=== PATIENT | female | born 1935 | race Caucasian/White ===

== ENCOUNTER 2023-12-05 06:30 | Inpatient (IN) | payer MEDICARE ==
[~2023-12-05] VITALS: Ht 152.4 cm; Wt 61.1 kg
[2023-12-05 06:48] LABS: Basophils # (auto) 0.1 10 ^3/uL (0-0.2); Basophils % (auto) 1.1 % (0.0-2.0); Eosinophils # (auto) 0.2 10 ^3/uL (0-0.8); Eosinophils % (auto) 2.4 % (0.0-7.0); Hematocrit 43.8 % (36.0-46.0); Hemoglobin 14.6 g/dL (12.2-16.2); Lymphocytes % (auto) 13.4 % (10.0-50.0); Mean Corpuscular Hemoglobin 31.3 pg (28.0-32.0); Mean Corpuscular Hgb Conc. 33.3 g/dL (32.0-36.0); Monocytes # (auto) 0.7 10 ^3/uL (0-1.3); Monocytes % (auto) 9.8 % (0.0-12.0); Neutrophils # (auto) 5.5 10 ^3/uL (1.6-8.6); Neutrophils % (auto) 73.3 % (37.0-80.0); Red Blood Cells 4.66 10^6/uL (4.0-5.20); Red Cell Distribution Width 14.8 % (11.8-14.3); White Blood Cell 7.5 10^3/uL (4.4-10.8)
[2023-12-05 07:03] LABS: INR 1.02 (0.9-1.15); Partial Thromboplastin Time 28.5 SEC (24.5-34.5); Prothrombin Time 10.8 sec (9.3-11.8)
[2023-12-05 07:25] LABS: Albumin 3.9 g/dL (3.2-4.8); Alkaline Phosphatase 79 U/L (46-116); Anion Gap 6 (5-15); Aspartate Aminotransferase 20 U/L (13-40); BUN/Creatinine Ratio 11.2 (10.0-20.0); Bilirubin, Total 0.5 mg/dL (0.2-1.0); Blood Urea Nitrogen 13 mg/dL (9-23); Calcium 9.5 mg/dL (8.5-10.1); Carbon Dioxide 25 mmol/L (20-30); Chloride 110 mmol/L (98-107); Glucose 98 mg/dL (74-106); Potassium 3.9 mmol/L (3.5-5.1); Sodium 141 mmol/L (136-145); Total Protein 6.7 g/dL (5.7-8.2)
[2023-12-05 07:26] LABS: Alanine Aminotransferase 9 U/L (7-40)
[2023-12-05] MEDS ORDERED: NITROGLYCERIN 0.4 MG SL TAB SL PRN (11:15)
[2023-12-05 12:20] LABS: INR 0.98 (0.9-1.15); Prothrombin Time 10.4 sec (9.3-11.8)
[2023-12-05 13:00] VITALS: BP 111/67; PULSE 70; RESP 18; TEMP 98; O2SAT 94
[2023-12-05 13:05] VITALS: PULSE 62; RESP 18; O2SAT 98
[2023-12-05 15:14] VITALS: PULSE 75; RESP 18; O2SAT 96
[2023-12-05] MEDS ORDERED: hydrALAZINE HCL 20 MG/ML VL IV PRN (16:00)
[2023-12-05 16:27] LABS: Triglycerides 143 mg/dL (< 150)
[2023-12-05 16:28] LABS: LDL Cholesterol 69 mg/dL (< 100)
[2023-12-05 16:29] LABS: Cholesterol 131 mg/dL (< 200); HDL Cholesterol 36 mg/dL (40-59)
[2023-12-05] MEDS: ASPirin 325 MG TAB PO ONE (16:53)
[2023-12-05] MEDS: FUROSEMIDE 40 MG/4 ML VIAL IV ONE (16:53)
[2023-12-05 17:00] VITALS: BP 108/75; PULSE 74; RESP 14; TEMP 97.7; O2SAT 96
[2023-12-05 20:00] VITALS: PULSE 72
[2023-12-05] MEDS: ATORVASTATIN 20 MG TAB PO SCH (21:15)
[2023-12-05] MEDS: ENOXAPARIN SOD 60 MG/0.6 ML SYRINGE SC SCH (21:16)
[2023-12-05] MEDS: SACUBITRIL-VALSARTAN 24mg/26mg TAB PO SCH (21:17)
[2023-12-05] MEDS: ACETAMINOPHEN 325 MG TAB PO PRN (21:23)
[2023-12-06] MEDS: FUROSEMIDE 20 MG/2 ML VIAL IV SCH (06:36)
[2023-12-06 07:46] LABS: Basophils # (auto) 0 10 ^3/uL (0-0.2); Basophils % (auto) 0.4 % (0.0-2.0); Eosinophils # (auto) 0.1 10 ^3/uL (0-0.8); Eosinophils % (auto) 0.5 % (0.0-7.0); Hematocrit 48.5 % (36.0-46.0); Hemoglobin 16.3 g/dL (12.2-16.2); Lymphocytes # (auto) 0.6 10 ^3/uL (0.4-5.4); Lymphocytes % (auto) 5.1 % (10.0-50.0); Mean Corpuscular Hemoglobin 31.3 pg (28.0-32.0); Mean Corpuscular Hgb Conc. 33.6 g/dL (32.0-36.0); Mean Corpuscular Volume 92.9 fL (80.0-100.0); Monocytes # (auto) 0.9 10 ^3/uL (0-1.3); Monocytes % (auto) 7.1 % (0.0-12.0); Neutrophils # (auto) 10.4 10 ^3/uL (1.6-8.6); Neutrophils % (auto) 86.9 % (37.0-80.0); Red Blood Cells 5.22 10^6/uL (4.0-5.20); Red Cell Distribution Width 14.4 % (11.8-14.3)
[2023-12-06 08:00] VITALS: PULSE 78
[2023-12-06 08:05] LABS: Alanine Aminotransferase 12 U/L (7-40); Albumin 4.1 g/dL (3.2-4.8); Alkaline Phosphatase 75 U/L (46-116); Anion Gap 10 (5-15); Aspartate Aminotransferase 19 U/L (13-40); BUN/Creatinine Ratio 10.4 (10.0-20.0); Bilirubin, Total 0.8 mg/dL (0.2-1.0); Blood Urea Nitrogen 13 mg/dL (9-23); Calcium 9.4 mg/dL (8.5-10.1); Carbon Dioxide 24 mmol/L (20-30); Chloride 105 mmol/L (98-107); Cholesterol 136 mg/dL (< 200); Glucose 92 mg/dL (74-106); HDL Cholesterol 33 mg/dL (40-59); Potassium 3.8 mmol/L (3.5-5.1); Sodium 139 mmol/L (136-145); Total Protein 7.1 g/dL (5.7-8.2); Triglycerides 138 mg/dL (< 150)
[2023-12-06 08:09] LABS: LDL Cholesterol 75 mg/dL (< 100)
[2023-12-06 09:00] VITALS: BP 108/63; PULSE 76; RESP 16; TEMP 97.6; O2SAT 94
[2023-12-06] MEDS: DOCUSATE SOD 100 MG CAP PO SCH (10:00)
[2023-12-06] MEDS ORDERED: ASPirin 81 mg TAB PO SCH (10:00)
[2023-12-06] MEDS: ASPirin 81 mg TAB PO SCH (10:17)
[2023-12-06] MEDS: ONDANSETRON HCL 4 MG/2 ML VIAL IV PRN (15:37)
[2023-12-06 16:50] VITALS: BP 111/73; PULSE 91; RESP 16; TEMP 98.3; O2SAT 95
[2023-12-06 20:00] VITALS: PULSE 87; PULSE 96; RESP 16; O2SAT 93
[2023-12-06 21:25] VITALS: BP 126/72; PULSE 87; RESP 16; TEMP 97.8; O2SAT 93
[2023-12-07] VITALS (7 sets, daily range): BP systolic 90–106; BP diastolic 59–69; PULSE 76–113; RESP 15–18; TEMP 97.8–98.7; O2SAT 91–98
[2023-12-07 06:02] LABS: Chloride 105 mmol/L (98-107); Potassium 3.7 mmol/L (3.5-5.1); Sodium 137 mmol/L (136-145)
[2023-12-07 06:03] LABS: Anion Gap 10 (5-15); Calcium 9.3 mg/dL (8.7-10.4); Carbon Dioxide 22 mmol/L (20-30)
[2023-12-07 06:08] LABS: BUN/Creatinine Ratio 12.8 (10.0-20.0); Blood Urea Nitrogen 18 mg/dL (9-23); Glucose 102 mg/dL (74-106)
[2023-12-07 06:10] LABS: Basophils # (auto) 0.1 10 ^3/uL (0-0.2); Basophils % (auto) 0.9 % (0.0-2.0); Eosinophils # (auto) 0.1 10 ^3/uL (0-0.8); Eosinophils % (auto) 0.5 % (0.0-7.0); Hematocrit 48.4 % (36.0-46.0); Hemoglobin 16.3 g/dL (12.2-16.2); Lymphocytes % (auto) 9.9 % (10.0-50.0); Mean Corpuscular Hemoglobin 31.5 pg (28.0-32.0); Mean Corpuscular Hgb Conc. 33.6 g/dL (32.0-36.0); Mean Corpuscular Volume 93.7 fL (80.0-100.0); Monocytes # (auto) 1.2 10 ^3/uL (0-1.3); Monocytes % (auto) 11.2 % (0.0-12.0); Neutrophils % (auto) 77.5 % (37.0-80.0); Nucleated Red Blood Cells % 0.1 %; Red Blood Cells 5.17 10^6/uL (4.0-5.20); Red Cell Distribution Width 14.4 % (11.8-14.3); White Blood Cell 10.4 10^3/uL (4.4-10.8)
[2023-12-07 06:14] LABS: INR 1.07 (0.9-1.15); Partial Thromboplastin Time 31.9 SEC (24.5-34.5); Prothrombin Time 11.3 sec (9.3-11.8)
[2023-12-07] MEDS ORDERED: HYDROcodone-ACET 5/325MG TAB PO PRN (09:15)
[2023-12-07] MEDS: PANTOPRAZOLE 40 MG TAB PO SCH (09:25)
[2023-12-07] MEDS: SODIUM CHLORIDE 0.9% 1,000 ML IV SCH (10:00)
[2023-12-07] MEDS: NITROGLYCERIN 0.2MG/HR TOPICAL PATCH TD ONE (12:00)
[2023-12-07] MEDS: MORPHINE SULFATE INJ 2 MG/ml SYRG IV PRN (16:45)
[2023-12-08] VITALS (40 sets, daily range): BP systolic 95–146; BP diastolic 53–86; PULSE 65–101; RESP 11–19; TEMP 98–98.5; O2SAT 92–98
[2023-12-08 04:11] LABS: Basophils # (auto) 0.1 10 ^3/uL (0-0.2); Eosinophils # (auto) 0.1 10 ^3/uL (0-0.8); Eosinophils % (auto) 0.9 % (0.0-7.0); Hemoglobin 14.4 g/dL (12.2-16.2); Lymphocytes # (auto) 0.6 10 ^3/uL (0.4-5.4); Lymphocytes % (auto) 7.3 % (10.0-50.0); Mean Corpuscular Hemoglobin 31.7 pg (28.0-32.0); Mean Corpuscular Hgb Conc. 33.6 g/dL (32.0-36.0); Mean Corpuscular Volume 94.4 fL (80.0-100.0); Monocytes # (auto) 0.9 10 ^3/uL (0-1.3); Monocytes % (auto) 10.4 % (0.0-12.0); Neutrophils # (auto) 7.2 10 ^3/uL (1.6-8.6); Neutrophils % (auto) 80.4 % (37.0-80.0); Red Blood Cells 4.56 10^6/uL (4.0-5.20); Red Cell Distribution Width 14.6 % (11.8-14.3); White Blood Cell 8.9 10^3/uL (4.4-10.8)
[2023-12-08 04:31] LABS: INR 1.05 (0.9-1.15); Partial Thromboplastin Time 33.1 SEC (24.5-34.5); Prothrombin Time 11.1 sec (9.3-11.8)
[2023-12-08 04:34] LABS: Chloride 109 mmol/L (98-107); Potassium 3.8 mmol/L (3.5-5.1); Sodium 139 mmol/L (136-145)
[2023-12-08 04:35] LABS: Anion Gap 8 (5-15); Carbon Dioxide 22 mmol/L (20-30)
[2023-12-08 04:36] LABS: Calcium 8.8 mg/dL (8.7-10.4)
[2023-12-08 04:40] LABS: Glucose 92 mg/dL (74-106)
[2023-12-08 04:41] LABS: BUN/Creatinine Ratio 14.6 (10.0-20.0); Blood Urea Nitrogen 19 mg/dL (9-23)
[2023-12-08 04:51] LABS: Urine Bacteria MANY /hpf (None Seen); Urine Blood Negative /uL (Negative); Urine Budding Yeast OCCASIONAL /hpf (None Seen); Urine Clarity Clear (Clear); Urine Color Yellow (Yellow); Urine Mucus FEW (None Seen); Urine Protein, UAD TRACE (Negative); Urine Specific Gravity 1.022 (1.001-1.035); Urine Urobilinogen Normal (Negative); Urine WBC 28 /hpf (0 - 5)
[2023-12-08] MEDS: VERAPAMIL 2.5MG/ML INJ 2ML VIAL IV ONE (12:26)
[2023-12-08] MEDS: ANGIOMAX 250 MG VIAL IV ONE (12:26)
[2023-12-08] MEDS: HEPARIN SODIUM (PORCINE) 5000 UNITS/ML 1ML VIAL ONE (12:26)
[2023-12-08] MEDS: fentaNYL CITRATE 100 MCG/2 ML VL ONE (12:27)
[2023-12-08] MEDS: SODIUM CHL 0.9% 50 ML ONE (12:27)
[2023-12-08] MEDS: MIDAZOLAM HCL 2MG/2ML 2ml VIAL (1mg/ml) ONE (12:27)
[2023-12-08] MEDS: IODIXANOL 320MG/ML 100ML BTL IV ONE ×2 (12:29→13:30)
[2023-12-08] MEDS: LIDOCAINE 2%HCL (LOCAL ANESTH.) INJ 20ML MDV ONE (12:29)
[2023-12-08] MEDS: NITROGLYCERIN 50MG/250ML 250 ML IV ONE (14:15)
[2023-12-08] MEDS: NITROGLYCERIN 50MG/250ML 250 ML IV SCH (14:28)
[2023-12-08] MEDS: MORPHINE SULFATE 4 MG/ML SYR/VIAL IV PRN (15:29)
[2023-12-09] VITALS (61 sets, daily range): BP systolic 104–143; BP diastolic 55–85; PULSE 61–98; RESP 11–29; TEMP 98.2–98.6; O2SAT 89–97
[2023-12-09 09:55] LABS: Basophils # (auto) 0.1 10 ^3/uL (0-0.2); Basophils % (auto) 0.8 % (0.0-2.0); Eosinophils # (auto) 0.1 10 ^3/uL (0-0.8); Eosinophils % (auto) 1.2 % (0.0-7.0); Hematocrit 41.6 % (36.0-46.0); Hemoglobin 13.8 g/dL (12.2-16.2); Lymphocytes # (auto) 0.5 10 ^3/uL (0.4-5.4); Lymphocytes % (auto) 6.8 % (10.0-50.0); Mean Corpuscular Hemoglobin 31.1 pg (28.0-32.0); Mean Corpuscular Hgb Conc. 33.2 g/dL (32.0-36.0); Mean Corpuscular Volume 93.7 fL (80.0-100.0); Monocytes # (auto) 0.6 10 ^3/uL (0-1.3); Monocytes % (auto) 8.6 % (0.0-12.0); Neutrophils # (auto) 5.8 10 ^3/uL (1.6-8.6); Neutrophils % (auto) 82.6 % (37.0-80.0); Nucleated Red Blood Cells % 0.1 %; Red Blood Cells 4.44 10^6/uL (4.0-5.20); Red Cell Distribution Width 14.1 % (11.8-14.3); White Blood Cell 7.1 10^3/uL (4.4-10.8)
[2023-12-09 10:07] LABS: Calcium 8.8 mg/dL (8.5-10.1); Chloride 109 mmol/L (98-107); Potassium 3.9 mmol/L (3.5-5.1); Sodium 140 mmol/L (136-145)
[2023-12-09 10:08] LABS: Anion Gap 6 (5-15); Carbon Dioxide 25 mmol/L (20-30)
[2023-12-09 10:13] LABS: BUN/Creatinine Ratio 15.5 (10.0-20.0); Blood Urea Nitrogen 16 mg/dL (9-23); Glucose 154 mg/dL (74-106)
[2023-12-09] MEDS: METOPROLOL SUCCINATE XL 50 MG TAB PO SCH (10:46)
[2023-12-09] MEDS ORDERED: AMLO1TAB22 PO (11:27)
[2023-12-09] MEDS ORDERED: ROSU40TA81 PO (11:27)
[2023-12-09] MEDS ORDERED: METO25TA5 PO (11:27)
[2023-12-09] MEDS ORDERED: LOSA-535 PO (11:27)
[2023-12-09] MEDS ORDERED: MONT-8 PO (11:27)
[2023-12-09] MEDS: ISOSORBIDE MONONITRATE ER 60 MG TAB PO SCH (13:37)
[2023-12-09] MEDS ORDERED: CIPR500T4 PO (14:13)
[2023-12-09] MEDS ORDERED: ISO60SRT PO (14:13)
[2023-12-09] MEDS ORDERED: CLOP75TA70 PO (14:13)
[2023-12-09] MEDS ORDERED: ASPI-325 PO (14:13)
[2023-12-09] MEDS ORDERED: METO-6 PO (14:13)
[2023-12-10] MEDS ORDERED: CLOPIDOGREL BISULFATE 75 MG TAB PO SCH (10:00)
== END 2023-12-09 16:30 | disposition home or self-care (01) | DRG 280 ==
LOC: ER 06:30 → TELE 12:33 → TELE-WESTW 14:50 → ICU CENTRL 12-08 20:16
PROVIDERS: ADMIT Nurse Practitioner Acute Care; ATTEND Nurse Practitioner Acute Care
PROC: B211YZZ Fluoroscopy of Multiple Coronary Arteries using Other Contrast (ICD-10-PCS; principal; 2023-12-08)
PROC: 4A023N7 Measurement of Cardiac Sampling and Pressure, Left Heart, Percutaneous Approach (ICD-10-PCS; 2023-12-08)
PROC: 02JA3ZZ Inspection of Heart, Percutaneous Approach (ICD-10-PCS; 2023-12-08)
DX: T82.855A Stenosis of coronary artery stent, initial encounter (principal); I50.33 Acute on chronic diastolic (congestive) heart failure; I21.4 Non-ST elevation (NSTEMI) myocardial infarction; I13.0 Hypertensive heart and chronic kidney disease with heart failure and stage 1 through stage 4 chronic kidney disease, or unspecified chronic kidney disease; N17.9 Acute kidney failure, unspecified; N39.0 Urinary tract infection, site not specified; I44.0 Atrioventricular block, first degree; I25.10 Atherosclerotic heart disease of native coronary artery without angina pectoris; R00.1 Bradycardia, unspecified; N18.9 Chronic kidney disease, unspecified; E78.5 Hyperlipidemia, unspecified; Y83.1 Surgical operation with implant of artificial internal device as the cause of abnormal reaction of the patient, or of later complication, without mention of misadventure at the time of the procedure; Z90.49 Acquired absence of other specified parts of digestive tract; Z88.0 Allergy status to penicillin; Y92.89 Other specified places as the place of occurrence of the external cause
CPT/HCPCS: 36415; 70450; 71045; 80048; 80053; 80061; 81001; 83036; 83735; 83880; 84443; 84484; 85025; 85610; 85730; 86850; 86900; 86901; 87081; 93005; 93306; 93458; 99152; G0378; J2250; J2405; Q9967